=== PATIENT | female | born 1975 | race Caucasian/White ===

== ENCOUNTER 2017-05-02 12:35 | Emergency (ER) | payer SELFPAY ==
--- NOTE | 2017-05-02 14:27 | ED CLINICAL REPORT ---
Clinical Report - Physicians/Mid Levels [facility] [address], [place] [address] 05/02/2017 12:40 Patient: HOLLY LEVY Time Seen: 13:06. Arrived- By private vehicle. Historian- patient. HISTORY OF PRESENT ILLNESS Chief Complaint: SKIN RASH. This started several days ago and is now gone. It was gradual in onset and has been constant. It is described as itchy. It is described as painful (a mild diffuse burning sensation). It has been generalized in location and located on the left upper extremity. The patient has recently taken medication (Patient reports that she has a history of systemic vasculitis. She says that over the past several days she has started having symptoms of a flareup. She had a rash on her left arm yesterday which is now resolved. However, she has diffuse itching and mild swelling and says that ulcers are starting to develop on her lip she denies any throat tightness or swelling. No difficulty swallowing.). Similar symptoms previously: Evaluation/treatment: steroid given. Diagnosis: (Systemic vasculitis). REVIEW OF SYSTEMS The patient has had mildly enlarged right neck and left neck lymph nodes. No calf pain, chest pain, cough, pedal edema or palpitations. No abdominal pain or constipation. She has had mild difficulty breathing ("I don't feel I can't quite get a full breath."). The patient has also had dyspnea on exertion. She has had loose stools. No bloody diarrhea. All systems otherwise negative, except as recorded above. SOCIAL HISTORY Current every day light tobacco smoker (cigarette)- less than 1/2 a pack per day. History of occasional drug use: marijuana. Residence: She recently moved here from [place]. FAMILY HISTORY Heart disease with early in first-degree relative (father and sibling). mother with Crohn's disease. ADDITIONAL NOTES The nursing notes have been reviewed. PHYSICAL EXAM Vital Signs: 05/02/2017 12:49 BP: 102/74. HR: 93. RR: 14. O2 saturation: 99%. Temp: 98.6 F. Pain level now: 12/16. Have been reviewed. Appearance: Alert. Eyes: Pupils equal, round and reactive to light. ENT: Ears normal. Upper lip. Lower lip: mild swelling (mild superficial cracking and ulceration). Pharynx normal. Neck: Mild right anterior neck and mild left anterior neck lymphadenopathy present. Neck supple. CVS: Normal heart rate and rhythm. Heart sounds normal. Respiratory: No respiratory distress. Breath sounds normal. Abdomen: Nontender. No organomegaly. Skin: Generalized erythema (mild). Extremities: Normal external inspection. Extremities nontender. No calf tenderness. Neuro: No motor deficit. No sensory deficit. PROGRESS AND PROCEDURES Patient/family counseled. Old medical records reviewed. Disposition: Discharged. Condition: stable. CLINICAL IMPRESSION Systemic vasculitis. INSTRUCTIONS Do not smoke- benefits of smoking cessation discussed (>3 -10 minutes). Seek medical help to quit smoking. Warnings: Further evaluation is necessary. GENERAL WARNINGS: Return or contact your physician immediately if your condition worsens or changes unexpectedly, if not improving as expected, or if other problems arise. Prescription Medications: Prednisone 20 mg: take 3 orally every day for 5 days. Dispense fifteen (15). No refills. Prednisone 10 mg tablets: take 4 orally every day for 5 days, then 2 every day for 3 days, then 1 every day for 2 days. Dispense twenty-eight (28). No refills. (start this taper after you have completed the 5 day course of 60 mg each day as discussed.) Follow-up: Follow up with your doctor in seven days. Call for the next available appointment. Follow up with a specialist- as recommended by your primary care physician- Communications Field Technician. Call for an appointment. Understanding of the discharge instructions verbalized by patient. (Electronically signed by Mert Blankenship MD 05/08/2017 21:37)
--- NOTE | 2017-05-02 14:27 | ED NURSING NOTES ---
Clinical Report - Nurses [facility] [address], [place] [address] 05/02/2017 12:40 Patient: HOLLY LEVY TRIAGE Triage time 12:49. Acuity: LEVEL 4. Chief Complaint: SKIN RASH and . Vasculitis. 12:55 05/02/17. 12:50 05/02/17. Alert. No acute distress. SEPSIS SCREEN: Sepsis Screen. Negative (no infection suspected/documented). --12:55 Guillermo Pete R.N. 12:49 05/02/17. BP: 102/74. HR: 93. RR: 14. O2 saturation: 99% on room air. Temp: 98.6 F (oral). Pain level now: 210. --12:55 Guillermo Pete R.N. Weight: 55.3 kg stated. Height/Length: 65 inches Per Patient. BMI: 20.3. --12:49 Guillermo Pete R.N. Medications None. --12:52 Guillermo Pete R.N. Medication/allergy information source: the patient. --12:55 Guillermo Pete R.N. Allergies Bactrim. --12:52 Guillermo Pete R.N. History Arrived by private vehicle. Historian: patient. Accompanied by family. Primary physician (None). 12:55 05/02/17. Onset. (Monday). ( Rash located left fore arm). Treatment GENERAL WAREHOUSE ASSOCIATE: None. PAST MEDICAL HX: Immunizations: up-to-date. The patient has had a hysterectomy. SOCIAL HX: Current every day light tobacco smoker (cigarette)- less than 1/2 a pack per day. Occasional alcohol use. History of occasional drug use: marijuana. FALL RISK ASSESSMENT: Fall risk assessment completed. No fall risk identified. NUTRITIONAL RISK ASSESSMENT: The nutritional risk assessment revealed no deficiencies. FUNCTIONAL ASSESSMENT: Functional assessment: no impairments noted. LEARNING NEEDS ASSESSMENT: The learning needs assessment revealed no barriers. SKIN INTEGRITY ASSESSMENT: Skin integrity risk assessment completed. No skin integrity risk identified. --12:55 Guillermo Pete R.N. PROBLEMS: Herpes Labialis. Stomatitis. Vasculitis. CVA - Cerebrovascular Accident. Depression. Colon Cancer. --12:52 Guillermo Pete R.N. Bain's Palsy. --12:54 Guillermo Pete R.N. ADDITIONAL SURGERIES: Breast Augmentation. Colonoscopy. Hysterectomy. Tubal Ligation. --12:52 Guillermo Pete R.N. Assessment 12:55 05/02/17. --12:55 Guillermo Peet R.N. Interventions 12:50 05/02/17. 12:55 05/02/17. ID and allergy band on patient. To treatment room. --12:55 Guillermo Pete R.N. PHYSICAL ASSESSMENT 12:53 05/02/17. Ambulatory to room. GENERAL / NEURO / PSYCH: Alert. Oriented X 4. RESPIRATORY: Respirations not labored. CVS: Capillary refill less than 2 seconds. SKIN: Skin is warm and dry. No skin rash. --12:53 Guillermo Pete R.N. NURSING PROGRESS NOTES 12:53 05/02/17. The plan of care for this patient has been created. Patient gowned. Head of bed elevated. Reassurance given. Two patient identifiers checked. Call light placed in reach. Side rails up x 2. Bed placed in lowest position. Brakes of bed on. --12:53 Guillermo Pete R.N. 12:53 05/02/17. Patient ready for evaluation- chart flagged and notification provided. --12:53 Guillermo Pete R.N. <<STRICKEN ENTRY-- late entry -13:10. ( Pt ambulated to x-ray). --14:12 Guillermo Pete R.N. --END STRIKE>> Correction --14:12 Guillermo Pete R.N. late entry -14:10. ( Pt ambulated to x-ray). --14:12 Guillermo Pete R.N. 14:18 05/02/17. Patient walked back to ED from radiology with tech. --14:18 Guillermo Pete R.N. DISPOSITION / DISCHARGE 14:39 05/02/17. Departure time: 14:39 May 02 2017. Condition at departure: unchanged. The goals identified in the patient's plan of care were met. No learning barriers present. Discharge instructions provided and reviewed with the patient. Reviewed warnings (Patient education provided regarding the importance of quitting smoking.). Reviewed medication(s) side effects, precautions, dosing and course information. Prescription(s) given to the patient (Prednisone.). Treatments reviewed. Reviewed referral to a primary care physician for followup. Patient verbalized understanding. Written instructions provided in Iranian. The patient was discharged by the physician. She was discharged home and accompanied by family. She left the Emergency Department ambulatory and via private vehicle. Family member driving. FALL RISK ASSESSMENT: Fall risk assessment completed. No fall risk identified. --14:39 Ricarda Marques 14:37 05/02/17. BP: 103/64. HR: 91. RR: 15. O2 saturation: 96% on room air. Temp: 98.7 F (oral). Pain level now: 12/16. --14:39 Ricarda Marques. Locked/Released at 05/02/2017 15:52 by Ricarda Marques,
--- NOTE | 2017-05-02 14:27 | ED ORDER SUMMARY ---
..... Patient: HOLLY LEVY OrderSheet [facility] VisitID: [id number] [address], [place] [address] 41y, F Registration Date/Time: 05/02/2017 ORDER SHEET Weight: 55.3 kg (stated) Allergies: Bactrim GENERAL ORDERS: Chest 2V Urgent (13:42 05/02/2017 Batsheva ADAM) (Ack 14:01 LNations ER Tech1) (14:11 Trenton Ribeiro) MEDICATION ORDERS: IV FLUIDS: ORDER SHEET NOTES: [Electronically signed by Ricarda Marques (15:52 05/02/2017)] [Electronically signed by Mert Blankenship MD (21:37 05/08/2017)] [Electronically locked/signed by Ricarda Marques (15:52 05/02/2017)]
--- NOTE | 2017-05-02 14:27 | ED ORDER SUMMARY ---
..... Patient: HOLLY LEVY OrderSheet [facility] VisitID: [id number] [address] [address] 41y, F Registration Date/Time: 05/02/2017 ORDER SHEET Weight: 55.3 kg (stated) Allergies: Bactrim GENERAL ORDERS: Chest 2V Urgent (13:42 05/02/2017 Batsheva ADAM) (Ack 14:01 LNations ER Tech1) (14:11 Trenton Ribeiro) MEDICATION ORDERS: IV FLUIDS: ORDER SHEET NOTES: [Electronically signed by Ricarda Marques (15:52 05/02/2017)] [Electronically signed by Mert Blankenship MD (21:37 05/08/2017)] [Electronically locked/signed by Ricarda Marques (15:52 05/02/2017)]
--- NOTE | 2017-05-02 14:27 | ED NURSING NOTES ---
Clinical Report - Nurses [facility] [address], [place] [address] 05/02/2017 12:40 Patient: HOLLY LEVY TRIAGE Triage time 12:49. Acuity: LEVEL 4. Chief Complaint: SKIN RASH and . Vasculitis. 12:55 05/02/17. 12:50 05/02/17. Alert. No acute distress. SEPSIS SCREEN: Sepsis Screen. Negative (no infection suspected/documented). --12:55 Guillermo Pete R.N. 12:49 05/02/17. BP: 102/74. HR: 93. RR: 14. O2 saturation: 99% on room air. Temp: 98.6 F (oral). Pain level now: 210. --12:55 Guillermo Pete R.N. Weight: 55.3 kg stated. Height/Length: 65 inches Per Patient. BMI: 20.3. --12:49 Guillermo Pete R.N. Medications None. --12:52 Guillermo Pete R.N. Medication/allergy information source: the patient. --12:55 Guillermo Pete R.N. Allergies Bactrim. --12:52 Guillermo Pete R.N. History Arrived by private vehicle. Historian: patient. Accompanied by family. Primary physician (None). 12:55 05/02/17. Onset. (Monday). ( Rash located left fore arm). Treatment COSTUME DIRECTOR: None. PAST MEDICAL HX: Immunizations: up-to-date. The patient has had a hysterectomy. SOCIAL HX: Current every day light tobacco smoker (cigarette)- less than 1/2 a pack per day. Occasional alcohol use. History of occasional drug use: marijuana. FALL RISK ASSESSMENT: Fall risk assessment completed. No fall risk identified. NUTRITIONAL RISK ASSESSMENT: The nutritional risk assessment revealed no deficiencies. FUNCTIONAL ASSESSMENT: Functional assessment: no impairments noted. LEARNING NEEDS ASSESSMENT: The learning needs assessment revealed no barriers. SKIN INTEGRITY ASSESSMENT: Skin integrity risk assessment completed. No skin integrity risk identified. --12:55 Guillermo Pete R.N. PROBLEMS: Herpes Labialis. Stomatitis. Vasculitis. CVA - Cerebrovascular Accident. Depression. Colon Cancer. --12:52 Guillermo Pete R.N. Bain's Palsy. --12:54 Guillermo Pete R.N. ADDITIONAL SURGERIES: Breast Augmentation. Colonoscopy. Hysterectomy. Tubal Ligation. --12:52 Guillermo Pete R.N. Assessment 12:55 05/02/17. --12:55 Guillermo Pete R.N. Interventions 12:50 05/02/17. 12:55 05/02/17. ID and allergy band on patient. To treatment room. --12:55 Guillermo Pete R.N. PHYSICAL ASSESSMENT 12:53 05/02/17. Ambulatory to room. GENERAL / NEURO / PSYCH: Alert. Oriented X 4. RESPIRATORY: Respirations not labored. CVS: Capillary refill less than 2 seconds. SKIN: Skin is warm and dry. No skin rash. --12:53 Guillermo Pete R.N. NURSING PROGRESS NOTES 12:53 05/02/17. The plan of care for this patient has been created. Patient gowned. Head of bed elevated. Reassurance given. Two patient identifiers checked. Call light placed in reach. Side rails up x 2. Bed placed in lowest position. Brakes of bed on. --12:53 Guillermo Pete R.N. 12:53 05/02/17. Patient ready for evaluation- chart flagged and notification provided. --12:53 Guillermo Pete R.N. <<STRICKEN ENTRY-- late entry -13:10. ( Pt ambulated to x-ray). --14:12 Guillermo Pete R.N. --END STRIKE>> Correction --14:12 Guillermo Pete R.N. late entry -14:10. ( Pt ambulated to x-ray). --14:12 Guillermo Pete R.N. 14:18 05/02/17. Patient walked back to ED from radiology with tech. --14:18 Guillermo Pete R.N. DISPOSITION / DISCHARGE 14:39 05/02/17. Departure time: 14:39 May 02 2017. Condition at departure: unchanged. The goals identified in the patient's plan of care were met. No learning barriers present. Discharge instructions provided and reviewed with the patient. Reviewed warnings (Patient education provided regarding the importance of quitting smoking.). Reviewed medication(s) side effects, precautions, dosing and course information. Prescription(s) given to the patient (Prednisone.). Treatments reviewed. Reviewed referral to a primary care physician for followup. Patient verbalized understanding. Written instructions provided in Swedish. The patient was discharged by the physician. She was discharged home and accompanied by family. She left the Emergency Department ambulatory and via private vehicle. Family member driving. FALL RISK ASSESSMENT: Fall risk assessment completed. No fall risk identified. --14:39 Ricarda Marques 14:37 05/02/17. BP: 103/64. HR: 91. RR: 15. O2 saturation: 96% on room air. Temp: 98.7 F (oral). Pain level now: 12/16. --14:39 Ricarda Marques. Locked/Released at 05/02/2017 15:52 by Ricarda Marques,
--- NOTE | 2017-05-02 14:42 | DIAGNOSTIC IMAGING REPORT ---
PROCEDURE: XR CHEST 2 VIEW INDICATION: SWELLING TECHNIQUE: Two views. COMPARISON: None. FINDINGS: The cardiomediastinal contour and central vasculature are within normal limits. The lungs are clear without focal consolidation, pleural effusion, or pneumothorax. The visualized osseous structures are intact. IMPRESSION: 1. Normal chest.
--- NOTE | 2017-05-08 21:37 | ED MAR SUMMARY ---
..... Medication Administration Record [facility] [address], [place] [id number] Patient: HOLLY LEVY Visit ID: [id number] 41y, F Weight: 55.3 kg Height/Length: 65 in BMI: 20.3 ALLERGIES: Bactrim
--- NOTE | 2017-05-08 21:37 | ED DISCHARGE INSTRUCTIONS ---
Patient: HOLLY LEVY General Instructions [facility] VisitID: [id number] [address] [place] [address] 41y, F Registration Date/Time: 05/02/2017 Systemic vasculitis. INSTRUCTIONS Do not smoke- benefits of smoking cessation discussed (>3 -10 minutes). Seek medical help to quit smoking. Warnings: Further evaluation is necessary. GENERAL WARNINGS: Return or contact your physician immediately if your condition worsens or changes unexpectedly, if not improving as expected, or if other problems arise. Prescription Medications: Prednisone 20 mg: take 3 orally every day for 5 days. Dispense fifteen (15). No refills. Prednisone 10 mg tablets: take 4 orally every day for 5 days, then 2 every day for 3 days, then 1 every day for 2 days. Dispense twenty-eight (28). No refills. (start this taper after you have completed the 5 day course of 60 mg each day as discussed.) Follow-up: Follow up with your doctor in seven days. Call for the next available appointment. Follow up with a specialist- as recommended by your primary care physician- Production Manager. Call for an appointment. Understanding of the discharge instructions verbalized by patient. ADDITIONAL INFORMATION How To Quit Smoking Smoking is one of the hardest habits to break. About half of all those who have ever smoked have been able to quit, and most of those (about 70%) who still smoke want to quit. Here are some of the best ways to stop smoking. Keep Trying: It takes most smokers about 8 tries before they are finally able to fully quit. So, the more often you try and fail, the better your chance of quitting the next time! So, don't give up! Go Cold [place]: Most ex-smokers quit cold turkey. Trying to cut back gradually doesn't seem to work as well, perhaps because it continues the smoking habit. Also, it is possible to fool yourself by inhaling more while smoking fewer cigarettes. This results in the same amount of nicotine in your body! Get Support: Support programs can make an important difference, especially for the heavy smoker. These groups offer lectures, methods to change your behavior and peer support. Call the free national Quitline for more information. 469-MHJU-WNM (292-871-9237). Low-cost or free programs are offered by many hospitals, local chapters of the [place] [employer] (988-428-0645) and the [place] [employer] (111-753-6575). Support at home is important too. Non-smokers can help by offering praise and encouragement. If the smoker fails to quit, encourage them to try again! Ddym-Wpp-Ouehvcb Medicines: For those who can't quit on their own, Nicotine Replacement Therapy (NRT) may make quitting much easier. Certain aids such as the nicotine patch, gum and lozenge are available without a prescription. However, it is best to use these under the guidance of your doctor. The skin patch provides a steady supply of nicotine to the body. Nicotine gum and lozenge gives temporary bursts of low levels of nicotine. Both methods take the edge off the craving for cigarettes. WARNING: If you feel symptoms of nicotine overdose, such as nausea, vomiting, dizziness, weakness, or fast heartbeat, stop using these and see your doctor. Prescription Medicines: After evaluating your smoking patterns and prior attempts at quitting, your doctor may offer a prescription medicine such as bupropion (Zyban, Wellbutrin), varenicline (Chantix, Champix), a niocotine inhaler or nasal spray. Each has its unique advantage and side effects which your doctor can review with you. Health Benefits Of Quitting: The benefits of quitting start right away and keep improving the longer you go without smokin minutes: blood pressure and pulse return to normal 8 hours: oxygen levels return to normal 2 days: ability to smell and taste begins to improve as damaged nerves start to regrow 2-3 weeks: circulation and lung function improves 1-9 months: decreased cough, congestion and shortness of breath; less tired 1 year: risk of heart attack decreases by half 5 years: risk of lung cancer decreases by half; risk of stroke becomes the same as a non-smoker For information about how to quit smoking, visit the following links: National Cancer [place] , Clearing the Air, Quit Smoking Today - an online booklet. http://www.smokefree.gov/pubs/clearing_the_air.pdf Smokefree.gov http://smokefree.gov/ QuitNet http://www.quitnet.com/ Prednisone Oral tablet What is this medicine? PREDNISONE (PRED ni sone) is a corticosteroid. It is commonly used to treat inflammation of the skin, joints, lungs, and other organs. Common conditions treated include asthma, allergies, and arthritis. It is also used for other conditions, such as blood disorders and diseases of the adrenal glands. How should I use this medicine? Take this medicine by mouth with a glass of water. Follow the directions on the prescription label. Take this medicine with food. If you are taking this medicine once a day, take it in the morning. Do not take more medicine than you are told to take. Do not suddenly stop taking your medicine because you may develop a severe reaction. Your doctor will tell you how much medicine to take. If your doctor wants you to stop the medicine, the dose may be slowly lowered over time to avoid any side effects. Talk to your electro mechanic regarding the use of this medicine in children. Special care may be needed. What side effects may I notice from receiving this medicine? Side effects that you should report to your doctor or health clinical manager home care as soon as possible: allergic reactions like skin rash, itching or hives, swelling of the face, lips, or tongue changes in emotions or moods changes in vision depressed mood eye pain fever or chills, cough, sore throat, pain or difficulty passing urine increased thirst swelling of ankles, feet Side effects that usually do not require medical attention (report to your doctor or health clinical manager home care if they continue or are bothersome): confusion, excitement, restlessness headache nausea, vomiting skin problems, acne, thin and shiny skin trouble sleeping weight gain What may interact with this medicine? Do not take this medicine with any of the following medications: metyrapone mifepristone This medicine may also interact with the following medications: aminoglutethimide amphotericin B aspirin and aspirin-like medicines barbiturates certain medicines for diabetes, like glipizide or glyburide cholestyramine cholinesterase inhibitors cyclosporine digoxin diuretics ephedrine female hormones, like estrogens and control pills isoniazid ketoconazole NSAIDS, medicines for pain and inflammation, like ibuprofen or naproxen phenytoin rifampin toxoids vaccines warfarin What if I miss a dose? If you miss a dose, take it as soon as you can. If it is almost time for your next dose, talk to your doctor or health clinical manager home care. You may need to miss a dose or take an extra dose. Do not take double or extra doses without advice. Where should I keep my medicine? Keep out of the reach of children. Store at room temperature between 15 and 30 degrees C (59 and 86 degrees F). Protect from light. Keep container tightly closed. Throw away any unused medicine after the expiration date. What should I tell my health care provider before I take this medicine? They need to know if you have any of these conditions: Austin's syndrome diabetes glaucoma heart disease high blood pressure infection (especially a virus infection such as chickenpox, cold sores, or herpes) kidney disease liver disease mental illness myasthenia gravis osteoporosis seizures stomach or intestine problems thyroid disease an unusual or allergic reaction to lactose, prednisone, other medicines, foods, dyes, or preservatives or trying to get breast-feeding What should I watch for while using this medicine? Visit your doctor or health clinical manager home care for regular checks on your progress. If you are taking this medicine over a prolonged period, carry an identification card with your name and address, the type and dose of your medicine, and your doctor's name and address. This medicine may increase your risk of getting an infection. Tell your doctor or health clinical manager home care if you are around anyone with measles or chickenpox, or if you develop sores or blisters that do not heal properly. If you are going to have surgery, tell your doctor or health clinical manager home care that you have taken this medicine within the last twelve months. Ask your doctor or health clinical manager home care about your diet. You may need to lower the amount of salt you eat. This medicine may affect blood sugar levels. If you have diabetes, check with your doctor or health clinical manager home care before you change your diet or the dose of your diabetic medicine. Prednisone Oral tablet What is this medicine? PREDNISONE (PRED ni sone) is a corticosteroid. It is commonly used to treat inflammation of the skin, joints, lungs, and other organs. Common conditions treated include asthma, allergies, and arthritis. It is also used for other conditions, such as blood disorders and diseases of the adrenal glands. How should I use this medicine? Take this medicine by mouth with a glass of water. Follow the directions on the prescription label. Take this medicine with food. If you are taking this medicine once a day, take it in the morning. Do not take more medicine than you are told to take. Do not suddenly stop taking your medicine because you may develop a severe reaction. Your doctor will tell you how much medicine to take. If your doctor wants you to stop the medicine, the dose may be slowly lowered over time to avoid any side effects. Talk to your electro mechanic regarding the use of this medicine in children. Special care may be needed. What side effects may I notice from receiving this medicine? Side effects that you should report to your doctor or health clinical manager home care as soon as possible: allergic reactions like skin rash, itching or hives, swelling of the face, lips, or tongue changes in emotions or moods changes in vision depressed mood eye pain fever or chills, cough, sore throat, pain or difficulty passing urine increased thirst swelling of ankles, feet Side effects that usually do not require medical attention (report to your doctor or health clinical manager home care if they continue or are bothersome): confusion, excitement, restlessness headache nausea, vomiting skin problems, acne, thin and shiny skin trouble sleeping weight gain What may interact with this medicine? Do not take this medicine with any of the following medications: metyrapone mifepristone This medicine may also interact with the following medications: aminoglutethimide amphotericin B aspirin and aspirin-like medicines barbiturates certain medicines for diabetes, like glipizide or glyburide cholestyramine cholinesterase inhibitors cyclosporine digoxin diuretics ephedrine female hormones, like estrogens and control pills isoniazid ketoconazole NSAIDS, medicines for pain and inflammation, like ibuprofen or naproxen phenytoin rifampin toxoids vaccines warfarin What if I miss a dose? If you miss a dose, take it as soon as you can. If it is almost time for your next dose, talk to your doctor or health clinical manager home care. You may need to miss a dose or take an extra dose. Do not take double or extra doses without advice. Where should I keep my medicine? Keep out of the reach of children. Store at room temperature between 15 and 30 degrees C (59 and 86 degrees F). Protect from light. Keep container tightly closed. Throw away any unused medicine after the expiration date. What should I tell my health care provider before I take this medicine? They need to know if you have any of these conditions: Austin's syndrome diabetes glaucoma heart disease high blood pressure infection (especially a virus infection such as chickenpox, cold sores, or herpes) kidney disease liver disease mental illness myasthenia gravis osteoporosis seizures stomach or intestine problems thyroid disease an unusual or allergic reaction to lactose, prednisone, other medicines, foods, dyes, or preservatives or trying to get breast-feeding What should I watch for while using this medicine? Visit your doctor or health clinical manager home care for regular checks on your progress. If you are taking this medicine over a prolonged period, carry an identification card with your name and address, the type and dose of your medicine, and your doctor's name and address. This medicine may increase your risk of getting an infection. Tell your doctor or health clinical manager home care if you are around anyone with measles or chickenpox, or if you develop sores or blisters that do not heal properly. If you are going to have surgery, tell your doctor or health clinical manager home care that you have taken this medicine within the last twelve months. Ask your doctor or health clinical manager home care about your diet. You may need to lower the amount of salt you eat. This medicine may affect blood sugar levels. If you have diabetes, check with your doctor or health clinical manager home care before you change your diet or the dose of your diabetic medicine. You have been given the following additional information: Smoking Cessation Prednisone Oral tablet Prednisone Oral tablet (Electronically signed by Mert Blankenship MD 05/08/2017 21:37)
--- NOTE | 2017-05-08 21:37 | ED DISCHARGE INSTRUCTIONS ---
Patient: HOLLY LEVY General Instructions [facility] VisitID: [id number] [address] [place] [address] 41y, F Registration Date/Time: 05/02/2017 Systemic vasculitis. INSTRUCTIONS Do not smoke- benefits of smoking cessation discussed (>3 -10 minutes). Seek medical help to quit smoking. Warnings: Further evaluation is necessary. GENERAL WARNINGS: Return or contact your physician immediately if your condition worsens or changes unexpectedly, if not improving as expected, or if other problems arise. Prescription Medications: Prednisone 20 mg: take 3 orally every day for 5 days. Dispense fifteen (15). No refills. Prednisone 10 mg tablets: take 4 orally every day for 5 days, then 2 every day for 3 days, then 1 every day for 2 days. Dispense twenty-eight (28). No refills. (start this taper after you have completed the 5 day course of 60 mg each day as discussed.) Follow-up: Follow up with your doctor in seven days. Call for the next available appointment. Follow up with a specialist- as recommended by your primary care physician- Senior Graphic Designer. Call for an appointment. Understanding of the discharge instructions verbalized by patient. ADDITIONAL INFORMATION How To Quit Smoking Smoking is one of the hardest habits to break. About half of all those who have ever smoked have been able to quit, and most of those (about 70%) who still smoke want to quit. Here are some of the best ways to stop smoking. Keep Trying: It takes most smokers about 8 tries before they are finally able to fully quit. So, the more often you try and fail, the better your chance of quitting the next time! So, don't give up! Go Cold [place]: Most ex-smokers quit cold turkey. Trying to cut back gradually doesn't seem to work as well, perhaps because it continues the smoking habit. Also, it is possible to fool yourself by inhaling more while smoking fewer cigarettes. This results in the same amount of nicotine in your body! Get Support: Support programs can make an important difference, especially for the heavy smoker. These groups offer lectures, methods to change your behavior and peer support. Call the free national Quitline for more information. 999-WYJX-ULJ (200-905-2432). Low-cost or free programs are offered by many hospitals, local chapters of the [employer] (232-713-6909) and the [employer] (024-556-0309). Support at home is important too. Non-smokers can help by offering praise and encouragement. If the smoker fails to quit, encourage them to try again! Aqww-Xuv-Ooivagq Medicines: For those who can't quit on their own, Nicotine Replacement Therapy (NRT) may make quitting much easier. Certain aids such as the nicotine patch, gum and lozenge are available without a prescription. However, it is best to use these under the guidance of your doctor. The skin patch provides a steady supply of nicotine to the body. Nicotine gum and lozenge gives temporary bursts of low levels of nicotine. Both methods take the edge off the craving for cigarettes. WARNING: If you feel symptoms of nicotine overdose, such as nausea, vomiting, dizziness, weakness, or fast heartbeat, stop using these and see your doctor. Prescription Medicines: After evaluating your smoking patterns and prior attempts at quitting, your doctor may offer a prescription medicine such as bupropion (Zyban, Wellbutrin), varenicline (Chantix, Champix), a niocotine inhaler or nasal spray. Each has its unique advantage and side effects which your doctor can review with you. Health Benefits Of Quitting: The benefits of quitting start right away and keep improving the longer you go without smokin minutes: blood pressure and pulse return to normal 8 hours: oxygen levels return to normal 2 days: ability to smell and taste begins to improve as damaged nerves start to regrow 2-3 weeks: circulation and lung function improves 1-9 months: decreased cough, congestion and shortness of breath; less tired 1 year: risk of heart attack decreases by half 5 years: risk of lung cancer decreases by half; risk of stroke becomes the same as a non-smoker For information about how to quit smoking, visit the following links: National Cancer [place] , Clearing the Air, Quit Smoking Today - an online booklet. http://www.smokefree.gov/pubs/clearing_the_air.pdf Smokefree.gov http://smokefree.gov/ QuitNet http://www.quitnet.com/ Prednisone Oral tablet What is this medicine? PREDNISONE (PRED ni sone) is a corticosteroid. It is commonly used to treat inflammation of the skin, joints, lungs, and other organs. Common conditions treated include asthma, allergies, and arthritis. It is also used for other conditions, such as blood disorders and diseases of the adrenal glands. How should I use this medicine? Take this medicine by mouth with a glass of water. Follow the directions on the prescription label. Take this medicine with food. If you are taking this medicine once a day, take it in the morning. Do not take more medicine than you are told to take. Do not suddenly stop taking your medicine because you may develop a severe reaction. Your doctor will tell you how much medicine to take. If your doctor wants you to stop the medicine, the dose may be slowly lowered over time to avoid any side effects. Talk to your irrigation laborer regarding the use of this medicine in children. Special care may be needed. What side effects may I notice from receiving this medicine? Side effects that you should report to your doctor or health career development manager as soon as possible: allergic reactions like skin rash, itching or hives, swelling of the face, lips, or tongue changes in emotions or moods changes in vision depressed mood eye pain fever or chills, cough, sore throat, pain or difficulty passing urine increased thirst swelling of ankles, feet Side effects that usually do not require medical attention (report to your doctor or health career development manager if they continue or are bothersome): confusion, excitement, restlessness headache nausea, vomiting skin problems, acne, thin and shiny skin trouble sleeping weight gain What may interact with this medicine? Do not take this medicine with any of the following medications: metyrapone mifepristone This medicine may also interact with the following medications: aminoglutethimide amphotericin B aspirin and aspirin-like medicines barbiturates certain medicines for diabetes, like glipizide or glyburide cholestyramine cholinesterase inhibitors cyclosporine digoxin diuretics ephedrine female hormones, like estrogens and control pills isoniazid ketoconazole NSAIDS, medicines for pain and inflammation, like ibuprofen or naproxen phenytoin rifampin toxoids vaccines warfarin What if I miss a dose? If you miss a dose, take it as soon as you can. If it is almost time for your next dose, talk to your doctor or health career development manager. You may need to miss a dose or take an extra dose. Do not take double or extra doses without advice. Where should I keep my medicine? Keep out of the reach of children. Store at room temperature between 15 and 30 degrees C (59 and 86 degrees F). Protect from light. Keep container tightly closed. Throw away any unused medicine after the expiration date. What should I tell my health care provider before I take this medicine? They need to know if you have any of these conditions: [place]'s syndrome diabetes glaucoma heart disease high blood pressure infection (especially a virus infection such as chickenpox, cold sores, or herpes) kidney disease liver disease mental illness myasthenia gravis osteoporosis seizures stomach or intestine problems thyroid disease an unusual or allergic reaction to lactose, prednisone, other medicines, foods, dyes, or preservatives or trying to get breast-feeding What should I watch for while using this medicine? Visit your doctor or health career development manager for regular checks on your progress. If you are taking this medicine over a prolonged period, carry an identification card with your name and address, the type and dose of your medicine, and your doctor's name and address. This medicine may increase your risk of getting an infection. Tell your doctor or health career development manager if you are around anyone with measles or chickenpox, or if you develop sores or blisters that do not heal properly. If you are going to have surgery, tell your doctor or health career development manager that you have taken this medicine within the last twelve months. Ask your doctor or health career development manager about your diet. You may need to lower the amount of salt you eat. This medicine may affect blood sugar levels. If you have diabetes, check with your doctor or health career development manager before you change your diet or the dose of your diabetic medicine. Prednisone Oral tablet What is this medicine? PREDNISONE (PRED ni sone) is a corticosteroid. It is commonly used to treat inflammation of the skin, joints, lungs, and other organs. Common conditions treated include asthma, allergies, and arthritis. It is also used for other conditions, such as blood disorders and diseases of the adrenal glands. How should I use this medicine? Take this medicine by mouth with a glass of water. Follow the directions on the prescription label. Take this medicine with food. If you are taking this medicine once a day, take it in the morning. Do not take more medicine than you are told to take. Do not suddenly stop taking your medicine because you may develop a severe reaction. Your doctor will tell you how much medicine to take. If your doctor wants you to stop the medicine, the dose may be slowly lowered over time to avoid any side effects. Talk to your irrigation laborer regarding the use of this medicine in children. Special care may be needed. What side effects may I notice from receiving this medicine? Side effects that you should report to your doctor or health career development manager as soon as possible: allergic reactions like skin rash, itching or hives, swelling of the face, lips, or tongue changes in emotions or moods changes in vision depressed mood eye pain fever or chills, cough, sore throat, pain or difficulty passing urine increased thirst swelling of ankles, feet Side effects that usually do not require medical attention (report to your doctor or health career development manager if they continue or are bothersome): confusion, excitement, restlessness headache nausea, vomiting skin problems, acne, thin and shiny skin trouble sleeping weight gain What may interact with this medicine? Do not take this medicine with any of the following medications: metyrapone mifepristone This medicine may also interact with the following medications: aminoglutethimide amphotericin B aspirin and aspirin-like medicines barbiturates certain medicines for diabetes, like glipizide or glyburide cholestyramine cholinesterase inhibitors cyclosporine digoxin diuretics ephedrine female hormones, like estrogens and control pills isoniazid ketoconazole NSAIDS, medicines for pain and inflammation, like ibuprofen or naproxen phenytoin rifampin toxoids vaccines warfarin What if I miss a dose? If you miss a dose, take it as soon as you can. If it is almost time for your next dose, talk to your doctor or health career development manager. You may need to miss a dose or take an extra dose. Do not take double or extra doses without advice. Where should I keep my medicine? Keep out of the reach of children. Store at room temperature between 15 and 30 degrees C (59 and 86 degrees F). Protect from light. Keep container tightly closed. Throw away any unused medicine after the expiration date. What should I tell my health care provider before I take this medicine? They need to know if you have any of these conditions: [place]'s syndrome diabetes glaucoma heart disease high blood pressure infection (especially a virus infection such as chickenpox, cold sores, or herpes) kidney disease liver disease mental illness myasthenia gravis osteoporosis seizures stomach or intestine problems thyroid disease an unusual or allergic reaction to lactose, prednisone, other medicines, foods, dyes, or preservatives or trying to get breast-feeding What should I watch for while using this medicine? Visit your doctor or health career development manager for regular checks on your progress. If you are taking this medicine over a prolonged period, carry an identification card with your name and address, the type and dose of your medicine, and your doctor's name and address. This medicine may increase your risk of getting an infection. Tell your doctor or health career development manager if you are around anyone with measles or chickenpox, or if you develop sores or blisters that do not heal properly. If you are going to have surgery, tell your doctor or health career development manager that you have taken this medicine within the last twelve months. Ask your doctor or health career development manager about your diet. You may need to lower the amount of salt you eat. This medicine may affect blood sugar levels. If you have diabetes, check with your doctor or health career development manager before you change your diet or the dose of your diabetic medicine. You have been given the following additional information: Smoking Cessation Prednisone Oral tablet Prednisone Oral tablet (Electronically signed by Mert Blankenship MD 05/08/2017 21:37)
--- NOTE | 2017-05-08 21:37 | ED MAR SUMMARY ---
..... Medication Administration Record [facility] [address] [place], [place] [id number] Patient: HOLLY LEVY Visit ID: [id number] 41y, F Weight: 55.3 kg Height/Length: 65 in BMI: 20.3 ALLERGIES: Bactrim
--- NOTE | 2017-05-08 21:37 | ED MED RECONCILIATION SUMMARY ---
Patient: HOLLY LEVY Medication Reconciliation Report [facility] VisitID: [id number] [address] [place] [address] 41y, F Registration Date/Time: 05/02/2017 Weight: 55.3 kg Height/Length: 65 in. BMI: 20.3 ALLERGIES: Bactrim The patient's Home Medications are listed below: NONE. The source(s) of the original Home Medication information: patient The following Medications were given to the patient in the Emergency Department: None. The following Medications were prescribed to the patient: Prednisone 20 mg: take 3 orally every day for 5 days. Dispense fifteen (15). No refills. -- Mert Blankenship MD Prednisone 10 mg tablets: take 4 orally every day for 5 days, then 2 every day for 3 days, then 1 every day for 2 days. Dispense twenty-eight (28). No refills.(start this taper after you have completed the 5 day course of 60 mg each day as discussed.) -- Mert Blankenship MD
--- NOTE | 2017-05-08 21:37 | ED MED RECONCILIATION SUMMARY ---
Patient: HOLLY LEVY Medication Reconciliation Report [facility] VisitID: [id number] [address] [place] [address] 41y, F Registration Date/Time: 05/02/2017 Weight: 55.3 kg Height/Length: 65 in. BMI: 20.3 ALLERGIES: Bactrim The patient's Home Medications are listed below: NONE. The source(s) of the original Home Medication information: patient The following Medications were given to the patient in the Emergency Department: None. The following Medications were prescribed to the patient: Prednisone 20 mg: take 3 orally every day for 5 days. Dispense fifteen (15). No refills. -- Mert Blankenship MD Prednisone 10 mg tablets: take 4 orally every day for 5 days, then 2 every day for 3 days, then 1 every day for 2 days. Dispense twenty-eight (28). No refills.(start this taper after you have completed the 5 day course of 60 mg each day as discussed.) -- Mert Blankenship MD
== END 2017-05-02 14:39 | disposition home or self-care (01) ==
LOC: ED SRH 12:35
DX: I77.6 Arteritis, unspecified (principal); R06.00 Dyspnea, unspecified; Z72.0 Tobacco use